=== PATIENT | female | born 1960 | race Caucasian/White ===

== ENCOUNTER 2017-10-24 13:08 | Inpatient (IN) | payer OTHER, SELFPAY ==
[2017-10-24 13:09] VITALS: BP 171/90; PULSE 96; RESP 16; TEMP 36.8; O2SAT 99; BMI 19.7
[2017-10-24 13:21] VITALS: BP 160/70; PULSE 92; RESP 14; O2SAT 99
--- NOTE | 2017-10-24 13:29 | RAD_ITS ---
STUDY: X-RAY - RIGHT HAND REASON FOR EXAM: Female, 57 years old. Pain with swelling and erythema. History of cat bite. TECHNIQUE: 3 view(s) of the hand. COMPARISON: None. FINDINGS: Normal radiocarpal articulation. Normal distal radioulnar joint. Normal visualized carpal bones. Normal carpal articulations Normal carpometacarpal articulation of the thumb. Normal second through fifth carpometacarpal joints. Normal metacarpi. Normal metacarpophalangeal joint of the thumb. Normal interphalangeal joint of the thumb. Normal proximal and distal phalanges of the thumb. Normal metacarpophalangeal joints of the second through fifth fingers. Normal proximal and distal interphalangeal joints of the second through fifth fingers. Normal phalanges of the second through fifth fingers. Soft tissue swelling. No radiopaque foreign body is seen. RAD/Hand Min 3 Views IMPRESSION: Soft tissue swelling. Electronically Signed: Anil Junior MD at 14:26 EDT Tel [phone], Service support ,
[2017-10-24 13:55] LABS: Absolute Lymphocyte Count 1.22 X10^3/ul (0.83-4.51); Absolute Neutrophil Count 4.5 X10^3/uL (2.0-7.7); Basophil# 0.02 X10^3/uL; Basophil% 0.3 % (0-1); Eosinophil# 0.08 X10^3/uL; Eosinophils% 1.3 % (0-5); Hemoglobin 12.4 g/dl (12.0-15.0); Lymphocyte # 1.22 X10^3/ul (4.0); Lymphocyte % 19.9 % (19-41); Mean Corp Hgb Conc 32.6 g/gl (32-36); Mean Corpuscular Hgb 29.6 pg (27.0-32.0); Mean Corpuscular Volume 90.7 fL (81-99); Mean Platelet Vol. 9.5 fl (6.2-12.0); Monocyte# 0.31 X10^3/uL; Neutrophil % 73.3 % (47-70); Platelet Count 215 K/mm3 (150-450); RBC Distribution Width CV 13.4 % (11.6-14.6); RBC Distribution Width SD 44.3 fl (35.1-43.9); Red Blood Count 4.19 M/mm3 (4.2-5.4); White Blood Count 6.1 K/mm3 (4.4-11.0)
[2017-10-24 13:56] LABS: POSITIVE COUNT NO; POSITIVE DIFFERENTIAL NO; POSITIVE MORPHOLOGY NO
[2017-10-24 14:08] LABS: Anion Gap 7 (5-15); BUN 13 mg/dL (7-18); BUN/Creat Ratio 10.1 RATIO (10-20); Calcium,Total 8.8 mg/dL (8.5-10.1); Chloride 106 mmol/L (98-107); Creatinine, Serum 1.29 mg/dL (0.55-1.02); EST Glomerular Filtration Rate 45 mL/min (>60); Est Glom Filt Rate - Afr Amer 54 mL/min (>60); Estimated Creatinine Clearance 36.31 ml/min; Glucose 131 mg/dL (74-106); Potassium 3.6 mmol/L (3.5-5.1); Sodium Level 141 mmol/L (136-145)
--- NOTE | 2017-10-24 14:08 | ED.VISSUMM ---
- ER Visit Summary Date of Service: 10/24/17 Chief Complaint: Cat bite right hand History of Present Illness: The patient is a 57 F who is right-hand dominant had a telemedicine evaluation yesterday and prescribed an ointment and clindamycin. She denies allergy to penicillin. She denies fever or chills. She does complain of increased redness and soft tissue swelling. She was bit by a pet cat. She was bit yesterday. There is no history rheumatic fever, heart murmur, SBE, or being immune suppressed. Physical Examination: Insert unremarkable. There is a puncture wound dorsal surface right hand in the vicinity of the third metacarpal. There is erythema, warmth slight induration with lymphangitis. Palpation the area is remarkable for slight purulent drainage. There is no epitrochlear or axillary lymphadenopathy. There is no pain with passive flexion-extension of the digits. Heart is regular without murmur, gallop or rub. S1 and S2 are normal. Lungs are clear to auscultation with good movement of air bilaterally. Test Results: Count 6.1 with 73% segs no bands. Electro panels marked for creatinine of 0.29 and glucose of 131. Emergency Department Course and Treatment: I was obtained to evaluate for retained foreign body. She received a dose of Unasyn. Blood work was obtained. Treatment Plan: States she has taken 3 doses of clindamycin. Disposition: Admit to med surge unit for failed outpatient treatment Bite right hand Impression: Infected right hand secondary to cat bite failed outpatient treatment This note was generated with [employer] dictation software. It may contain incorrect words, spelling, and punctuation that were not noted in review of the chart prior to signing ED Disposition - Plan for ED Patient: Chief Complaint: Bite Referrals: Maulik Black III, MD [Primary Care Provider] -
--- NOTE | 2017-10-24 14:32 | NURSING ---
DR AZUL CLOUD
[2017-10-24 14:39] VITALS: BMI 19.8
--- NOTE | 2017-10-24 14:42 | PCM.HP.STD ---
Problem List (1) Cellulitis of right hand Status: Acute (2) CKD (chronic kidney disease), stage III Status: Chronic History of Present Illness Date of Admission: 10/24/17 Chief Complaint: redness of right hand The patient is a 57 year old F who is bit on her right hand. Patient received some clindamycin and before starting the clindamycin, she noted that it started to get red. But even after taking the clindamycin he got more red and more swollen on the dorsum of her hand. Patient presented to the emergency room and did receive IV Unasyn. Patient denies any paresthesias in her hands and is able to move all of her digits without issues. Patient is Sitting for her sister who is out of state. Patient is aware of the patient's immunization status but does note that the patient's sister seems as though she would have done those appropriately. Patient is try to get a hold of her sisters currently in [place]. Current to the patient, this is strictly an indoor cat. The cat bite was rather deep on the dorsum of her hand and also associate with some scratches. [] Past Medical History Past Medical History (Chronic Problems): Chronic Problems CKD (chronic kidney disease), stage III (Chronic) Allergies Sulfa (Sulfonamide Antibiotics) Allergy (Verified 10/24/17 13:12) Hives Home Medications: Ambulatory Orders Medication Instructions Recorded Clindamycin HCl 300 mg PO TID 10/24/17 Mupirocin [Bactroban] 1 applicatio TOPICAL BID 10/24/17 Oxybutynin [Ditropan] 5 mg PO DAILY 10/24/17 Psychiatric History: No pertinent psych hx Smoking Status: Never smoker Tobacco Use: Non-smoker Alcohol: None Drugs: None - *Family History Paternal History Items: Heart Disease Review of Systems Constitutional: Denies: Chills, Fever, Weight Change Eyes: Denies: Blurred vision, Double vision HEENT: Denies: Head Aches, Sinus Congestion, Sinus Drainage Cardiovascular: Denies: Chest Pain, Palpitations Respiratory: Denies: Cough, Shortness of breath at rest, Sputum production Gastrointestinal: Denies: Abdominal Pain, Nausea, Vomiting Genitourinary: Denies: Dysuria Musculoskeletal: Reports: - - Right hand pain from the Bite. Denies: Joint Pain, Joint Tenderness Skin: Reports: - - Erythema on the dorsum of her right hand Neurological: Denies: Numbness, Tingling, Focal weakness Psychiatric: Denies: Anxiety, Depression, Homicidal Ideations, Suicidal Ideations Hematologic/ Lymphatic: Denies: Easy Bruising, Easy Bleeding, Hx of blood clot VTE Information - Inpt Only VTE Present on Admission: No VTE Pharm Prophylaxis ordered?: Yes Patient Problems: Active and Suspected Problems Cellulitis of right hand (Acute) - Physical Exam General: Alert, Cooperative, No apparent distress HEENT: Atraumatic, Normocephalic Neck: No Nodes, Thyroid Normal Size and Texture Lungs: Clear to auscultation, Normal air movement Cardiovascular: Regular rate, Regular Rhythm, Normal S1, Normal S2, No murmurs Abdomen: Bowel Sounds Present, Soft, Non Tender, Non-Distended, No Hepato-splenomegaly Extremities: No edema, No Calf Tenderness Skin: - - Erythema of the dorsum of the right hand extending more proximally. No fluctuance was noted. Discharge Musculoskeletal: No Tenderness to Palpation of Joints or Extremities, No Muscle Wasting Psych/Mental Status: Normal Affect, Appropriate Vital Signs Temp Pulse Resp BP Pulse Ox 36.8 C 92 14 160/70 H 99 10/24/17 13:09 10/24/17 13:21 10/24/17 13:21 10/24/17 13:21 10/24/17 13:21 Oxygen Delivery Method Room Air Weight: 48.988 kg Body Mass Index (BMI) 19.7 Laboratory Tests Past 24 Hrs 10/24/17 10/24/17 13:50 13:50 WBC 6.1 RBC 4.19 L Hgb 12.4 Hct 38.0 MCV 90.7 MCH 29.6 MCHC 32.6 RDW 13.4 RDW Differential 44.3 H Plt Count 215 MPV 9.5 Immature Gran % (Auto) 0.200 Neut % (Auto) 73.3 H Lymph % (Auto) 19.9 [place] % (Auto) 5.0 Eos % (Auto) 1.3 Baso % (Auto) 0.3 Absolute Neuts (auto) 4.5 Absolute Lymphs (auto) 1.22 Total Counted Not Reportable Sodium 141 Potassium 3.6 Chloride 106 Carbon Dioxide 28.0 Anion Gap 7 BUN 13 Creatinine 1.29 H Estim Creat Clear Calc 36.31 Est GFR (MDRD) Af Amer 54 L Est GFR (MDRD) Non-Af 45 L BUN/Creatinine Ratio 10.1 Glucose 131 H Calcium 8.8 Assessment/Plan Active and Suspected Problems Cellulitis of right hand (Acute) 1. Right hand cellulitis Secondary to the cat Bite. Only had 1 day of clindamycin and got worse. Patient will be changed over to Unasyn and be monitored. Dr. Gomes will be on consultation in case any surgery is necessary which I do not appreciate any surgery at this time. If patient does improve then I would suspect patient could be transitioned over to Augmentin. 2. Chronic kidney disease stage III Presumed his previous creatinine had been normal Patient will get IV fluids and will recheck a BMP in the morning 3. DVT prophylaxis with Lovenox Code Visit Inpatient E&M: 26218 Init Hosp L2
--- NOTE | 2017-10-24 14:50 | NURSING ---
MED SURG RT HAND CELLULITIS JOSE F
--- NOTE | 2017-10-24 14:51 | HP.PCM_ITS ---
Problem List (1) Cellulitis of right hand Status: Acute (2) CKD (chronic kidney disease), stage III Status: Chronic History of Present Illness Date of Admission: 10/24/17 Chief Complaint: redness of right hand The patient is a 57 year old F who is bit on her right hand. Patient received some clindamycin and before starting the clindamycin, she noted that it started to get red. But even after taking the clindamycin he got more red and more swollen on the dorsum of her hand. Patient presented to the emergency room and did receive IV Unasyn. Patient denies any paresthesias in her hands and is able to move all of her digits without issues. Patient is Sitting for her sister who is out of state. Patient is aware of the patient's immunization status but does note that the patient's sister seems as though she would have done those appropriately. Patient is try to get a hold of her sisters currently in [place]. Current to the patient, this is strictly an indoor cat. The cat bite was rather deep on the dorsum of her hand and also associate with some scratches. [] Past Medical History Past Medical History (Chronic Problems): Chronic Problems CKD (chronic kidney disease), stage III (Chronic) Allergies Sulfa (Sulfonamide Antibiotics) Allergy (Verified 10/24/17 13:12) Hives Home Medications: Ambulatory Orders Medication Instructions Recorded Clindamycin HCl 300 mg PO TID 10/24/17 Mupirocin [Bactroban] 1 applicatio TOPICAL BID 10/24/17 Oxybutynin [Ditropan] 5 mg PO DAILY 10/24/17 Psychiatric History: No pertinent psych hx Smoking Status: Never smoker Tobacco Use: Non-smoker Alcohol: None Drugs: None - *Family History Paternal History Items: Heart Disease Review of Systems Constitutional: Denies: Chills, Fever, Weight Change Eyes: Denies: Blurred vision, Double vision HEENT: Denies: Head Aches, Sinus Congestion, Sinus Drainage Cardiovascular: Denies: Chest Pain, Palpitations Respiratory: Denies: Cough, Shortness of breath at rest, Sputum production Gastrointestinal: Denies: Abdominal Pain, Nausea, Vomiting Genitourinary: Denies: Dysuria Musculoskeletal: Reports: - - Right hand pain from the Bite. Denies: Joint Pain , Joint Tenderness Skin: Reports: - - Erythema on the dorsum of her right hand Neurological: Denies: Numbness, Tingling, Focal weakness Psychiatric: Denies: Anxiety, Depression, Homicidal Ideations, Suicidal Ideations Hematologic/ Lymphatic: Denies: Easy Bruising, Easy Bleeding, Hx of blood clot VTE Information - Inpt Only VTE Present on Admission: No VTE Pharm Prophylaxis ordered?: Yes Patient Problems: Active and Suspected Problems Cellulitis of right hand (Acute) - Physical Exam General: Alert, Cooperative, No apparent distress HEENT: Atraumatic, Normocephalic Neck: No Nodes, Thyroid Normal Size and Texture Lungs: Clear to auscultation, Normal air movement Cardiovascular: Regular rate, Regular Rhythm, Normal S1, Normal S2, No murmurs Abdomen: Bowel Sounds Present, Soft, Non Tender, Non-Distended, No Hepato- splenomegaly Extremities: No edema, No Calf Tenderness Skin: - - Erythema of the dorsum of the right hand extending more proximally. No fluctuance was noted. Discharge Musculoskeletal: No Tenderness to Palpation of Joints or Extremities, No Muscle Wasting Psych/Mental Status: Normal Affect, Appropriate Vital Signs Temp Pulse Resp BP Pulse Ox 36.8 C 92 14 160/70 H 99 10/24/17 13:09 10/24/17 13:21 10/24/17 13:21 10/24/17 13:21 10/24/17 13:21 Oxygen Delivery Method Room Air Weight: 48.988 kg Body Mass Index (BMI) 19.7 Laboratory Tests Past 24 Hrs 10/24/17 10/24/17 13:50 13:50 WBC 6.1 RBC 4.19 L Hgb 12.4 Hct 38.0 MCV 90.7 MCH 29.6 MCHC 32.6 RDW 13.4 RDW Differential 44.3 H Plt Count 215 MPV 9.5 Immature Gran % (Auto) 0.200 Neut % (Auto) 73.3 H Lymph % (Auto) 19.9 [place] % (Auto) 5.0 Eos % (Auto) 1.3 Baso % (Auto) 0.3 Absolute Neuts (auto) 4.5 Absolute Lymphs (auto) 1.22 Total Counted Not Reportable Sodium 141 Potassium 3.6 Chloride 106 Carbon Dioxide 28.0 Anion Gap 7 BUN 13 Creatinine 1.29 H Estim Creat Clear Calc 36.31 Est GFR (MDRD) Af Amer 54 L Est GFR (MDRD) Non-Af 45 L BUN/Creatinine Ratio 10.1 Glucose 131 H Calcium 8.8 Assessment/Plan Active and Suspected Problems Cellulitis of right hand (Acute) 1. Right hand cellulitis * Secondary to the cat Bite. * Only had 1 day of clindamycin and got worse. * Patient will be changed over to Unasyn and be monitored. * Dr. Gomes will be on consultation in case any surgery is necessary which I do not appreciate any surgery at this time. * If patient does improve then I would suspect patient could be transitioned over to Augmentin. 2. Chronic kidney disease stage III * Presumed his previous creatinine had been normal * Patient will get IV fluids and will recheck a BMP in the morning 3. DVT prophylaxis with Lovenox Code Visit Inpatient E&M: 86608 Init Hosp L2
[2017-10-24 14:56] VITALS: BP 130/70; PULSE 98; RESP 14; O2SAT 99
[2017-10-24 15:34] VITALS: BMI 21.9
[2017-10-24 15:35] VITALS: BP 161/91; PULSE 85; RESP 18; TEMP 36.9; O2SAT 99
[2017-10-24] MEDS: 0.9% Normal Saline 1,000 ML 150 ML IV (16:06)
[2017-10-24 17:41] LABS: M R Staph aureus DNA By PCR Negative (Negative); Probe Check PASS; Specimen Processing Control PASS; Staph aureus DNA By PCR NEGATIVE (Negative)
--- NOTE | 2017-10-24 17:43 | CON.PCM_ITS ---
Reason for Consult Date of Consultation: 10/24/17 Reason for Consultation: Cat bite infection dorsum right hand by index finger. REFERRING PHYSICIAN: Dr. Mcintosh. AIRCRAFT BODY REPAIRER: Dr. Gomes. History of Present Illness: The patient is a 57 year old F who sustained a cat bite to the dorsum right hand by index finger. She states it is her sister's cat that she has been around for a while. She was started on Cleocin. The redness and swelling and pain worsened, and she was admitted. She denies any fever. She was started on Unasyn IV. Her WBC in ED was 6.1. Xray showed no foreign body and no fracture. Patient denies any paresthesias in her hands and is able to move all of her digits without issues. I was asked to evaluate this patient for surgical options for treatment. She is right hand dominant. Past Medical History Past Medical History (Chronic Problems): Chronic Problems CKD (chronic kidney disease), stage III (Chronic) Allergies Sulfa (Sulfonamide Antibiotics) Allergy (Verified 10/24/17 13:12) Hives Current Medications Acetaminophen (Tylenol) 650 mg PO Q6H PRN Enoxaparin Sodium (Lovenox) 40 mg SC DAILY@1000 DAYSI Ampicillin Sodium/Sulbactam (Sodium 3 gm/ Sodium Chloride) 112 mls @ 150 mls/ hr IV Q6 DAYSI Magnesium Hydroxide (Milk Of Magnesia) 30 ml PO DAILY PRN Ondansetron HCl (Zofran) 4 mg IV Q8H PRN Oxycodone HCl (Oxyir) 5 - 10 mg PO Q4H PRN Tolterodine Tartrate (Detrol La) 2 mg PO DAILY [facility] Home Medications: Ambulatory Orders Medication Instructions Recorded Mupirocin [Bactroban] 1 applicatio TOPICAL BID 10/24/17 Oxybutynin [Ditropan] 5 mg PO DAILY 10/24/17 Acetaminophen [Tylenol Tablet] 650 mg PO Q6H PRN PRN tablet 10/25/17 Amoxicillin/Potassium Clav 1 ea PO BID #14 tab 10/25/17 [Augmentin 875-125 Tablet] Lactobacillus Casei/Folic Acid 1 ea PO BID #20 cap 10/25/17 [Restora Rx Capsule] Surgical History: no surgical history Psychiatric History: No pertinent psych hx Smoking Status: Never smoker Tobacco Use: Non-smoker Alcohol: None Drugs: None - *Family History Paternal History Items: Heart Disease Review of Systems Comment: Constitutional: Denies: Chills, Fever, Weight Change. Eyes: Denies: Blurred vision, Double vision. HEENT: Denies: Head Aches, Sinus Congestion, Sinus Drainage. Cardiovascular: Denies: Chest Pain, Palpitations. Respiratory : Denies: Cough, Shortness of breath at rest, Sputum production. Gastrointestinal: Denies: Abdominal Pain, Nausea, Vomiting. Genitourinary: Denies: Dysuria. Musculoskeletal: Reports: - - Right hand pain from the Bite. Denies: Joint Pain, Joint Tenderness. Skin: Reports: - - Erythema on the dorsum of her right hand. Neurological: Denies: Numbness, Tingling, Focal weakness. Psychiatric: Denies: Anxiety, Depression, Homicidal Ideations, Suicidal Ideations. Hematologic/ Lymphatic: Denies: Easy Bruising, Easy Bleeding, Hx of blood clot Patient Problems: Active and Suspected Problems Cat bite (Acute) - Physical Exam General: Alert, Cooperative. HEENT: PERRL. EOMI. Throat is clear. Neck: No cervical adenopathy. Supple, nontender. Lungs: Clear to auscultation. Cardiovascular: Regular rate, Regular Rhythm. Abdomen: Soft, Non-Distended. Extremities: No edema, No Calf Tenderness Skin: - - Erythema of the dorsum of the right hand has improved. No fluctuance was noted. Small dry scab on dorsum by index finger where the cat bite located. No drainage. Musculoskeletal: No Tenderness to Palpation of Joints or Extremities. Good range of motion right hand. No sensory deficits. Radial pulses intact. No axillary adenopathy. Minimal swelling noted. She is right hand dominant. Psych/Mental Status: Normal Affect, Appropriate Vital Signs Temp Pulse Resp BP Pulse Ox 98.5 F 85 18 161/91 H 99 10/24/17 15:35 10/24/17 15:35 10/24/17 15:35 10/24/17 15:35 10/24/17 15:35 Oxygen Delivery Method Room Air Weight: 112 lb 9.6 oz Body Mass Index (BMI) 21.9 Diagnostic Data Hand X-Ray 10/24/17 13:29 IMPRESSION: Soft tissue swelling. Electronically Signed: Anil Junior MD at 14:26 EDT Tel [phone], Service support , Assessment/Plan Active and Suspected Problems Cat bite (Acute) 1. Cat bite infection dorsum right hand by index finger. 2. Cellulitis dorsum right hand by index finger. Continue Unasyn. If improvement continues which I anticipate, can be switched to Augmentin in the morning and if no problems occur, can be discharged on Augmentin. If redness worsens, will need a CT scan followed by operative intervention with incision and drainage and excisional debridement. Continue range of motion exercises to minimize stiffness. Keep right hand elevated to minimize swelling. No need for surgical intervention at this time. When discharged, followup office one week. She is instructed to call office sooner if drainage recurs. Patient was informed of the risks and complications of the procedure including alternatives to surgery. These were discussed with her personally. She voices understanding and wishes to proceed with the current plan of continued antibiotics and range of motion exercises. She understands that operative intervention may be necessary if there is worsening of the cat bite. Code Visit Inpatient E&M: 72971 Init Hosp L2 - ICD-10 - W55.01xA, L03.113
[2017-10-24 21:16] VITALS: BP 139/73; PULSE 73; RESP 18; TEMP 36.8; O2SAT 98
[2017-10-25] MEDS: 0.9% NaCl Peripheral Flush Adult/Peds IV (05:12)
[2017-10-25 05:14] VITALS: BP 124/83; PULSE 74; RESP 18; TEMP 36.9; O2SAT 100
[2017-10-25 06:27] LABS: Anion Gap 9 (5-15); BUN 9 mg/dL (7-18); BUN/Creat Ratio 11.5 RATIO (10-20); Calcium,Total 8.2 mg/dL (8.5-10.1); Chloride 111 mmol/L (98-107); Creatinine, Serum 0.78 mg/dL (0.55-1.02); EST Glomerular Filtration Rate 80 mL/min (>60); Est Glom Filt Rate - Afr Amer 97 mL/min (>60); Estimated Creatinine Clearance 55.78 ml/min; Glucose 87 mg/dL (74-106); Potassium 3.6 mmol/L (3.5-5.1); Sodium Level 146 mmol/L (136-145)
--- NOTE | 2017-10-25 06:53 | PCM.PROGNOTE ---
Subjective: Unasyn day #2 Patient is a 57-year-old female with a history of chronic renal failure stage III who presented to the emergency department at [facility] on 10/24/2017 complaining of redness on her right hand following a cat bite. She had a telemedicine evaluation and was prescribed Clindamycin on 10/23. The redness continued to increase and so she came to the ER. Vital signs at presentation to the emergency room were temperature 98.3, pulse rate 96, blood pressure 171/90, respiratory rate 16 and she was 99% saturated on room air. Blood cell count was 6.1 with 73% neutrophils. Creatinine was increased to 1.29 and the BUN was 13. Random blood sugar was 131. PCR on the wound drainage was negative for MRSA and negative for staph aureus protein. Pain x-ray of the hand showed soft tissue swelling with no evidence of foreign body. She was given Unasyn in the emergency room and admitted to the hospital with a consult for Dr. Gomes. No wound culture was sent. All events of the past 24 hours have been reviewed. Afebrile since admission. Blood pressure today is 124/83 with a pulse rate of 74. Creatinine today is 0.78, down from 1.29 at admission. States her pain is adequately controlled. Denies nausea or vomiting. Slept well last night. No diarrhea. Objective: Physical Exam General: Alert, Cooperative, No apparent distress, pleasant and upbeat HEENT: Atraumatic, Normocephalic Neck: No Nodes, trachea is midline, good carotid pulse BL Lungs: Clear to auscultation, Normal air movement Cardiovascular: Regular rate, Regular Rhythm, Normal S1, Normal S2, no ectopy Abdomen: Bowel Sounds Present, Soft, Non Tender, Non-Distended Extremities: No edema, No Calf Tenderness Skin: - - Erythema of the dorsum of the right hand extending more proximally. No fluctuance was noted. redness has receded within the marked border. there are small puncture wounds on the dorsum of the had which are scabbed over and no discharge could be expressed. Minimal swelling Musculoskeletal: No Tenderness to Palpation of Joints or Extremities, No Muscle Wasting Psych/Mental Status: Normal Affect, Appropriate - Physical Exam Vital Signs Temp Pulse Resp BP Pulse Ox 98.4 F 74 18 124/83 H 100 10/25/17 05:14 10/25/17 05:14 10/25/17 05:14 10/25/17 05:14 10/25/17 05:14 Oxygen Delivery Method Room Air Weight: 112 lb 9.6 oz Body Mass Index (BMI) 21.9 Intake and Output for Last 24 Hours 10/23/17 10/24/17 10/25/17 23:59 23:59 23:59 Intake Total 1317 / 1317 311 / 311 Balance 1317 / 1317 311 / 311 Laboratory Tests Past 24 Hrs 10/25/17 05:32 Sodium 146 H Potassium 3.6 Chloride 111 H Carbon Dioxide 26.0 Anion Gap 9 BUN 9 Creatinine 0.78 Estim Creat Clear Calc 55.78 Est GFR (MDRD) Af Amer 97 Est GFR (MDRD) Non-Af 80 BUN/Creatinine Ratio 11.5 Glucose 87 Calcium 8.2 L Medical Necessity - Tobacco Use Smoking Status: Never smoker Tobacco Use: Non-smoker Assessment/Plan Impressions 1. cat bite cellulitis - most likely culprit is Pasturella Multocida which is not covered by Clindamycin stable for [place] home. Code Visit Inpatient E&M: 91619 Disch Hosp
--- NOTE | 2017-10-25 07:03 | PN_ITS ---
Subjective: Unasyn day #2 Patient is a 57-year-old female with a history of chronic renal failure stage III who presented to the emergency department at [facility] on complaining of redness on her right hand following a cat bite. She had a telemedicine evaluation and was prescribed Clindamycin on 10/23. The redness continued to increase and so she came to the ER. Vital signs at presentation to the emergency room were temperature 98.3, pulse rate 96, blood pressure 171/90, respiratory rate 16 and she was 99% saturated on room air. Blood cell count was 6.1 with 73% neutrophils. Creatinine was increased to 1.29 and the BUN was 13. Random blood sugar was 131. PCR on the wound drainage was negative for MRSA and negative for staph aureus protein. Pain x- ray of the hand showed soft tissue swelling with no evidence of foreign body. She was given Unasyn in the emergency room and admitted to the hospital with a consult for Dr. Gomes. No wound culture was sent. All events of the past 24 hours have been reviewed. Afebrile since admission. Blood pressure today is 124/83 with a pulse rate of 74. Creatinine today is 0.78, down from 1.29 at admission. States her pain is adequately controlled. Denies nausea or vomiting. Slept well last night. No diarrhea. Objective: Physical Exam General: Alert, Cooperative, No apparent distress, pleasant and upbeat HEENT: Atraumatic, Normocephalic Neck: No Nodes, trachea is midline, good carotid pulse BL Lungs: Clear to auscultation, Normal air movement Cardiovascular: Regular rate, Regular Rhythm, Normal S1, Normal S2, no ectopy Abdomen: Bowel Sounds Present, Soft, Non Tender, Non-Distended Extremities: No edema, No Calf Tenderness Skin: - - Erythema of the dorsum of the right hand extending more proximally. No fluctuance was noted. redness has receded within the marked border. there are small puncture wounds on the dorsum of the had which are scabbed over and no discharge could be expressed. Minimal swelling Musculoskeletal: No Tenderness to Palpation of Joints or Extremities, No Muscle Wasting Psych/Mental Status: Normal Affect, Appropriate - Physical Exam Vital Signs Temp Pulse Resp BP Pulse Ox 98.4 F 74 18 124/83 H 100 10/25/17 05:14 10/25/17 05:14 10/25/17 05:14 10/25/17 05:14 10/25/17 05:14 Oxygen Delivery Method Room Air Weight: 112 lb 9.6 oz Body Mass Index (BMI) 21.9 Intake and Output for Last 24 Hours 10/23/17 10/24/17 10/25/17 23:59 23:59 23:59 Intake Total 1317 / 1317 311 / 311 Balance 1317 / 1317 311 / 311 Laboratory Tests Past 24 Hrs 10/25/17 05:32 Sodium 146 H Potassium 3.6 Chloride 111 H Carbon Dioxide 26.0 Anion Gap 9 BUN 9 Creatinine 0.78 Estim Creat Clear Calc 55.78 Est GFR (MDRD) Af Amer 97 Est GFR (MDRD) Non-Af 80 BUN/Creatinine Ratio 11.5 Glucose 87 Calcium 8.2 L Medical Necessity - Tobacco Use Smoking Status: Never smoker Tobacco Use: Non-smoker Assessment/Plan Impressions 1. cat bite cellulitis - most likely culprit is Pasturella Multocida which is not covered by Clindamycin stable for HI home. Code Visit Inpatient E&M: 65343 Disch Hosp
[2017-10-25 08:25] VITALS: BP 141/86; PULSE 71; RESP 16; TEMP 36.8; O2SAT 99
[2017-10-25] MEDS: Tolterodine Tartrate 2 MG CAP.SA PO (08:26)
[2017-10-25] MEDS: Enoxaparin 40 MG/0.4 ML Syringe SC (08:27)
--- NOTE | 2017-10-25 10:21 | PCM.DC ---
- Discharge Diagnoses Current Active Problems: Current Active and Chronic Problems Cellulitis of right hand (Acute) CKD (chronic kidney disease), stage III (Chronic) You will use the following diet at home:: No restrictions Your food should be the consistency of: Regular Your liquids should be the consistency of: Regular/Thin Discharge Activity: Return to Normal Activity Return to work on:: 10/30/17 May resume sexual activity in: No Restrictions Weight Bearing Status: Full weight bearing Keep extremity elevated above heart level: Right Arm Call your doctor if you observe: Fever of 101 or Higher, - - diarrhea, nausea, rash, increasing redness of the right hand, pus coming from the puncture site or a boil at the puncture site Additional Instructions: 1. The hand will swell when it is dependent due to increased blood flow due to infection......your body dilates the blood vessels trying to get white blood cells to the wound to fight the infection. It will also look more red when dependent....this is normal. Keep the Right arm in the sling for a few days when up walking around. You do not need to wear the sling if you are sitting in a chair and you can elevate the arm on the chair arm or if you are in bed. Augmentin can cause some GI upset so take it with food, not on an empty stomach. I prescribed a probiotic which should help with loose stool seen with Augmentin. Pending Tests on Discharge: none Allergies/Adverse Reactions: Allergies Sulfa (Sulfonamide Antibiotics) Allergy (Verified 10/24/17 13:12) Hives Medications to take at Discharge Mupirocin [Bactroban] 1 applicatio TOPICAL BID 10/24/17 Oxybutynin [Ditropan] 5 mg PO DAILY 10/24/17 Acetaminophen [Tylenol Tablet] 650 mg PO Q6H PRN PRN tablet 10/25/17 Amoxicillin/Potassium Clav [Augmentin 875-125 Tablet] 1 ea PO BID #14 tab 10/25/17 Lactobacillus Casei/Folic Acid [Restora Rx Capsule] 1 ea PO BID #20 cap 10/25/17 The following prescriptions were given: Amoxicillin/Potassium Clav [Augmentin 875-125 Tablet] 1 ea PO BID #14 tab Lactobacillus Casei/Folic Acid [Restora Rx Capsule] 1 ea PO BID #20 cap Primary Care Physician: Maulik Black III, MD [Primary Care Provider] - Please follow up with your Primary Care Physician in: 5-7 days Proposed Discharge Date: 10/25/17
--- NOTE | 2017-10-25 10:34 | PCM.DC.SUM ---
Discharge Date and Diagnosis Date of Admission: 10/24/17 Date of Discharge: 10/25/17 - Primary Discharge Diagnosis Active and Suspected Problems Cat bite (Acute) Cellulitis of right hand (Acute) Acute kidney injury - Secondary Discharge Diagnosis Chronic Problems Chronic renal failure stage III-ruled out Hospital Course and Treatment Imaging Results: Clinical Impression(s) from Imaging Studies Hand X-Ray 10/24/17 13:29 IMPRESSION: Soft tissue swelling. Electronically Signed: Anil Junior MD at 14:26 EDT Tel [phone], Service support , Laboratory Tests 10/24/17 10/24/17 10/24/17 13:50 13:50 14:15 WBC 6.1 RBC 4.19 L Hgb 12.4 Hct 38.0 MCV 90.7 MCH 29.6 MCHC 32.6 RDW 13.4 RDW Differential 44.3 H Plt Count 215 MPV 9.5 Immature Gran % (Auto) 0.200 Neut % (Auto) 73.3 H Lymph % (Auto) 19.9 [place] % (Auto) 5.0 Eos % (Auto) 1.3 Baso % (Auto) 0.3 Absolute Neuts (auto) 4.5 Absolute Lymphs (auto) 1.22 Total Counted Not Reportable Sodium 141 Potassium 3.6 Chloride 106 Carbon Dioxide 28.0 Anion Gap 7 BUN 13 Creatinine 1.29 H Estim Creat Clear Calc 36.31 Est GFR (MDRD) Af Amer 54 L Est GFR (MDRD) Non-Af 45 L BUN/Creatinine Ratio 10.1 Glucose 131 H Calcium 8.8 S.aureus Protein A PCR NEGATIVE MRSA (PCR) Negative 10/25/17 05:32 WBC RBC Hgb Hct MCV MCH MCHC RDW RDW Differential Plt Count MPV Immature Gran % (Auto) Neut % (Auto) Lymph % (Auto) [place] % (Auto) Eos % (Auto) Baso % (Auto) Absolute Neuts (auto) Absolute Lymphs (auto) Total Counted Sodium 146 H Potassium 3.6 Chloride 111 H Carbon Dioxide 26.0 Anion Gap 9 BUN 9 Creatinine 0.78 Estim Creat Clear Calc 55.78 Est GFR (MDRD) Af Amer 97 Est GFR (MDRD) Non-Af 80 BUN/Creatinine Ratio 11.5 Glucose 87 Calcium 8.2 L S.aureus Protein A PCR MRSA (PCR) Dr. Vish Gomes Operations: None Procedures: None Summary of Care Provided: Patient is a 57-year-old female with no significant chronic medical problems who presented to the emergency department at [facility] on 10/24/2017 complaining of redness of her right hand following a cat bite. She had a telemedicine evaluation and was prescribed Clindamycin on 10/23. The redness continued to increase and so she came to the ER. Vital signs at presentation to the emergency room were temperature 98.3, pulse rate 96, blood pressure 171/90, respiratory rate 16 and she was 99% saturated on room air. White Blood cell count was 6.1 with 73% neutrophils. Creatinine was increased to 1.29 and the BUN was 13. She denied any hx of Chronic kidney disease. Random blood sugar was 131. PCR on the wound drainage was negative for MRSA and negative for staph aureus protein. Plain x-ray of the hand showed soft tissue swelling with no evidence of foreign body. She was given Unasyn in the emergency room and admitted to the hospital with a diagnosis of LOUIE and cat bite cellulitis of the right hand. Consult was placed with Dr. Gomes. Unasyn was continued. The RUE was elevated. She was afebrile for the duration of her hospital stay. Dr. Gomes recommended continuing Unasyn and if the symptoms improved there would be no need for surgical intervention. One day following admission the redness had receded to well within the marked border. Swelling was minimal and the puncture wounds on the dorsum of the right hand were scabbed over with no expressible discharge. With hydration the creatinine decreased to 0.78 from 1.29 at admission. She was discharged home on Augmentin 875 mg twice daily for 7 more days. She was also given a prescription for probiotic. She will discontinue clindamycin. She was instructed to follow-up with Dr. Maulik Black iii in 5-7 days and to return to the emergency room should redness, swelling or pain increase or should she develop a fever. This note was generated with ROOOMERSation software. It may contain incorrect words, spelling, and punctuation that were not noted in checking the note before signing. Discharge Activity: Return to Normal Activity Return to work on:: 10/30/17 May resume sexual activity in: No Restrictions Weight Bearing Status: Full weight bearing Keep extremity elevated above heart level: Right Arm Call your doctor if you observe: Fever of 101 or Higher, - - diarrhea, nausea, rash, increasing redness of the right hand, pus coming from the puncture site or a boil at the puncture site Home Medications: Medications to take at Discharge Mupirocin [Bactroban] 1 applicatio TOPICAL BID 10/24/17 Oxybutynin [Ditropan] 5 mg PO DAILY 10/24/17 Acetaminophen [Tylenol Tablet] 650 mg PO Q6H PRN PRN tablet 10/25/17 Amoxicillin/Potassium Clav [Augmentin 875-125 Tablet] 1 ea PO BID #14 tab 10/25/17 Lactobacillus Casei/Folic Acid [Restora Rx Capsule] 1 ea PO BID #20 cap 10/25/17 Following Prescrptions Were Given to Patient: Amoxicillin/Potassium Clav [Augmentin 875-125 Tablet] 1 ea PO BID #14 tab Lactobacillus Casei/Folic Acid [Restora Rx Capsule] 1 ea PO BID #20 cap Primary Care Physician: Maulik Black III, MD [Primary Care Provider] - Please follow up with your Primary Care Physician in: 5-7 days Medical Necessity - Tobacco Use Smoking Status: Never smoker Tobacco Use: Non-smoker Meaningful Use Info Meaningful Use Diagnoses (Choose all that apply): None applicable Code Visit Inpatient E&M: 75446 Disch Hosp
--- NOTE | 2017-10-25 11:07 | CASEMGMT ---
RN CM assessment complete, see attached link. DC Plan: Home -No dc needs identified. Pt will return home with po antibiotics. Karl MCMAHON RN ACM
== END 2017-10-25 11:22 | disposition home or self-care (01) | DRG 603 ==
LOC: ED 14:22 → MS2 15:00
PROVIDERS: Emergency Provider Emergency Medicine; Family Provider Family Medicine; PCP Family Medicine; Visit Provider Internal Medicine
DX: L03.113 Cellulitis of right upper limb (principal); S61.451A Open bite of right hand, initial encounter; W55.01XA Bitten by cat, initial encounter
CPT/HCPCS: 36415; 73130; 80048; 85025; 87640; 97802; 99283; J7030; A4216; J0295

== ENCOUNTER → 2017-12-21 16:30 | Outpatient (CLI) | payer OTHER, SELFPAY ==
--- NOTE | 2017-12-21 16:34 | BI_ITS ---
MAMMOGRAPHY - BILATERAL SCREENING REASON FOR EXAM: Female, 57 years old. Routine annual screening examination. PERTINENT HISTORY: Non-contributory. TECHNIQUE: Digital bilateral breast sharron (3D mammographic acquisition) in the CC and MLO projections. 2-D mediolateral oblique (MLO) and craniocaudad (CC) views of both breasts were obtained. CAD: Full Field Digital Mammography with Computer Added Detection was performed. COMPARISON: Comparison is made with prior axial examination dated September 22, 2016. FINDINGS: Breast Composition: The breasts are extremely dense, which lowers the sensitivity of mammography. There are no dominant masses or suspicious calcifications. No other significant abnormalities are identified. There has been no significant change since the prior study. BI/SCREENING MAMM (CAD), BILAT IMPRESSION: Stable bilateral screening mammogram. Yearly follow-up mammogram recommended. (A) ASSESSMENT CATEGORY: BIRADS Category 1: Negative. A letter regarding these results will be sent to the patient by the facility within 30 days. Approximately 10% of breast cancers are not detected by mammography. A normal mammogram should not delay biopsy of a clinically suspicious abnormality. [id number] Electronically Signed: Anil Junior MD at 8:18 EDT Tel [phone], Service support ,
== END ==
PROVIDERS: Family Provider Family Medicine; PCP Family Medicine; Visit Provider Family Medicine
DX: Z12.31 Encounter for screening mammogram for malignant neoplasm of breast (principal)
CPT/HCPCS: 77063; 77067

== ENCOUNTER → 2019-08-27 | Outpatient (CLI) | payer OTHER, SELFPAY ==
--- NOTE | 2019-08-27 07:39 | BI_ITS ---
MAMMOGRAPHY - BILATERAL SCREENING REASON FOR EXAM: Female, 58 years old. Routine annual screening examination. PERTINENT HISTORY: Non-contributory. TECHNIQUE: Digital bilateral breast john (3D mammographic acquisition) in the CC and MLO projections. 2-D mediolateral oblique (MLO) and craniocaudad (CC) views of both breasts were obtained. CAD: Full Field Digital Mammography with Computer Added Detection was performed. COMPARISON: Comparison is made with prior examination dated December 21, 2017. FINDINGS: Breast Composition: The breasts are extremely dense, which lowers the sensitivity of mammography. There are no dominant masses or suspicious calcifications. No other significant abnormalities are identified. There has been no significant change since the prior study. BI/SCREEN MAMM (CAD) W/JOHN BILAT IMPRESSION: Stable bilateral screening mammogram. Yearly follow-up mammogram recommended. (A) ASSESSMENT CATEGORY: BIRADS Category 1: Negative. A letter regarding these results will be sent to the patient by the facility within 30 days. Approximately 10% of breast cancers are not detected by mammography. A normal mammogram should not delay biopsy of a clinically suspicious abnormality. [id number] Electronically Signed: Anil Junior, at 9:08 EDT , Service support ,
== END | disposition home or self-care (01) ==
LOC: OPBI 07:37
PROVIDERS: PCP Family Medicine; Referring Provider Family Medicine; Visit Provider Family Medicine
DX: Z12.31 Encounter for screening mammogram for malignant neoplasm of breast (principal)
CPT/HCPCS: 77063; 77067

== ENCOUNTER → 2019-11-28 | Outpatient (CLI) | payer OTHER, SELFPAY ==
[2019-11-13 10:08] VITALS: BMI 20.8
--- NOTE | 2019-11-28 13:49 | ECHOD_ITS ---
Reason For Study: Syncope Procedure This was a 2D Doppler, Color Flow transthoracic echocardiogram. Exam performed in department. Left Ventricle Normal LV size. The estimated ejection fraction is 65 %. Left ventricular systolic function is normal. Normal diastology for age. No regional wall motion abnormalities noted. Right Ventricle Normal RV size. Normal systolic function. Atria Normal left atrium. Normal right atrium. Mitral Valve Normal mitral valve. Tricuspid Valve Normal tricuspid valve. Mild tricuspid valve insufficiency. Aortic Valve Normal aortic valve. Trisinus/trileaflet aortic valve. Pulmonic Valve Normal pulmonic valve. Great Vessels Normal aortic root. The pulmonary artery is normal size. Inferior vena cava collapse with sniff. Pericardium/Pleural No pericardial effusion. MMode/2D Measurements & Calculations LVIDd: 3.6 cm IVSd: 0.75 cm Ao root diam: 3.2 cm LVIDs: 2.2 cm LVPWd: 0.73 cm RVDd: 3.0 cm FS: 39.0 % LAV(MOD-bp): 20.8 ml LA A4 area: 11.9 cm2 LA dimension(2D): 2.1 cm LAV(MOD-bp) Indexed: 14.0 ml/m2 LAV(MOD-sp2): 16.2 ml LAV(MOD-sp4): 25.3 ml RA A4 area: 12.5 cm2 Doppler Measurements & Calculations MV E max carlos: 85.0 cm/sec Lat Peak E' Carlos: 12.1 cm/sec Med Peak E' Carlos: 12.4 cm/sec MV A max carlos: 62.7 cm/sec E/E' lat: 7.0 E/E' med: 6.8 MV E/A: 1.4 Ao V2 max: 116.9 cm/sec LV V1 max: 85.2 cm/sec PA V2 max: 71.1 cm/sec Ao max P.5 mmHg LV V1 max P.9 mmHg TR max carlos: 209.6 cm/sec TR max P.6 mmHg Interpretation Summary Normal LV size. The estimated ejection fraction is 65 %. Left ventricular systolic function is normal. Mild tricuspid valve insufficiency. Ordering Physician: Cortes Mcgarry Referring Physician: SHERITA Black M.D. Performed By: Tracy Gomez RDCS
== END | disposition home or self-care (01) ==
PROVIDERS: PCP Family Medicine; Referring Provider Internal Medicine Cardiovascular Disease; Visit Provider Internal Medicine Cardiovascular Disease
DX: R42 Dizziness and giddiness (principal); R55 Syncope and collapse; I10 Essential (primary) hypertension
CPT/HCPCS: 93306

== ENCOUNTER 2020-08-27 07:00 | Outpatient (RCR) | payer OTHER, SELFPAY ==
[2019-11-13 10:08] VITALS: BMI 20.8
[2020-08-27] MEDS: COVID-19 VACC, MRNA(PFIZER)/PF 30 MCG/0.3 ML SYRINGE IM (15:55)
[2020-09-17] MEDS: COVID-19 VACC, MRNA(PFIZER)/PF 30 MCG/0.3 ML SYRINGE IM (15:27)
== END 2020-11-24 23:59 ==
LOC: IMMUN 07:00
PROVIDERS: PCP Family Medicine; Referring Provider Family Medicine; Visit Provider Family Medicine
DX: Z23 Encounter for immunization (principal)
CPT/HCPCS: 0001A; 0002A; 91300

== ENCOUNTER → 2020-10-21 08:19 | Outpatient (CLI) | payer OTHER, SELFPAY ==
[2019-11-13 10:08] VITALS: BMI 20.8
--- NOTE | 2020-10-21 08:21 | BI_ITS ---
MAMMOGRAPHY - BILATERAL SCREENING REASON FOR EXAM: Female, 60 years old. Routine annual screening examination. PERTINENT HISTORY: Non-contributory. TECHNIQUE: Digital bilateral breast john (3D mammographic acquisition) in the CC and MLO projections. 2-D mediolateral oblique (MLO) and craniocaudad (CC) views of both breasts were obtained. CAD: Full Field Digital Mammography with Computer Added Detection was performed. COMPARISON: Comparison is made with prior examination dated 08/27/2019 and 12/21/2017. FINDINGS: Breast Composition: The breasts are extremely dense, which lowers the sensitivity of mammography. There are no dominant masses or suspicious calcifications. No other significant abnormalities are identified. There has been no significant change since the prior study. BI/SCRN MAMM (CAD)W/JOHN BILAT IMPRESSION: Stable bilateral screening mammogram. Yearly follow-up mammogram recommended. (A) ASSESSMENT CATEGORY: BIRADS Category 1: Negative. A letter regarding these results will be sent to the patient by the facility within 30 days. Approximately 10% of breast cancers are not detected by mammography. A normal mammogram should not delay biopsy of a clinically suspicious abnormality. [id number] Electronically Signed: Anil Junior MD at 9:19 EDT , Service support ,
--- NOTE | 2020-10-21 08:40 | BD_ITS ---
STUDY: DUAL ENERGY X-RAY ABSORPTIOMETRY / DXA REASON FOR EXAM: Female, 60 years old. M810. Patient is postmenopausal. TECHNIQUE: Bone Mineral Density (BMD) measurements of lumbar spine and bilateral hips were obtained. COMPARISON: None. FINDINGS: Lumbar Spine (L1-L4): g/cm2 (0.919) / T-score (-2.3) / Z-score (-1.0) Findings are suggestive of osteopenia with a high fracture risk. Left Femur Total: g/cm2 (0.661) / T-score (-2.8) / Z-score (-1.7) Left Femoral Neck: g/cm2 (0.641) / T-score (-2.9) / Z-score (-1.5) Right Femur Total: g/cm2 (0.727) / T-score (-2.2) / Z-score (-1.2) Right Femoral Neck: g/cm2 (0.698) / T-score (-2.4) / Z-score (-1.1) BD/Dexa Bone Density Study IMPRESSION: The patient is considered osteoporotic as outlined below according to World [employer]anc[employer] Organization (WHO) criteria with a high fracture risk. Reference Information: The T-score is the number of standard deviations above or below the standard which is normal for young adults at their peak bone mineral density. The World Health Organization (WHO) interprets the T-scores as follows: Above -1 Normal bone density Between -1 and -2.5 Osteopenia Equal to / or below -2.5 Osteoporosis As a practical clinical guideline, osteopenia may be graded as follows: Mild -1 through -1.5 Moderate -1.6 through -2.0 Severe -2.1 through -2.4 The Z-score is the number of standard deviations above or below age-matched controls. A Z-score of less than -1.5 would be considered abnormal. References: 1. NIH Osteoporosis and Related Bone Diseases www osteo.org 2. International Society for Clinical Densitometry www iscd.org 3. National Osteoporosis Foundation www nof.org Electronically Signed: Anil Junior MD at 12:24 EDT , Service support ,
== END ==
PROVIDERS: PCP Family Medicine; Referring Provider Family Medicine; Visit Provider Family Medicine
DX: Z12.31 Encounter for screening mammogram for malignant neoplasm of breast (principal); Z13.820 Encounter for screening for osteoporosis
CPT/HCPCS: 77063; 77067; 77080

== ENCOUNTER → 2022-05-23 | Outpatient (CLI) | payer BC, SELFPAY ==
--- NOTE | 2022-05-23 07:28 | BI_ITS ---
MAMMOGRAPHY - BILATERAL SCREENING REASON FOR EXAM: Female, 61 years old. Routine annual screening examination. PERTINENT HISTORY: Non-contributory. TECHNIQUE: Digital bilateral breast john (3D mammographic acquisition) in the CC and MLO projections. 2-D mediolateral oblique (MLO) and craniocaudad (CC) views of both breasts were obtained. CAD: Full Field Digital Mammography with Computer Added Detection was performed. COMPARISON: Comparison is made with prior study dated 10/21/2020 and 08/27/2019. FINDINGS: Breast Composition: The breasts are extremely dense, which lowers the sensitivity of mammography. There are no dominant masses or suspicious calcifications. No other significant abnormalities are identified. There has been no significant change since the prior study. BI/SCRN MAMM (CAD)W/JOHN BILAT IMPRESSION: Stable bilateral screening mammogram. Yearly follow-up mammogram recommended. (A) ASSESSMENT CATEGORY: BIRADS Category 1: Negative. A letter regarding these results will be sent to the patient by the facility within 30 days. Approximately 10% of breast cancers are not detected by mammography. A normal mammogram should not delay biopsy of a clinically suspicious abnormality. [id number] Electronically Signed: Anil Junior MD at 8:08 EST ,
== END | disposition home or self-care (01) ==
LOC: OPBI 07:24
PROVIDERS: PCP Family Medicine; Visit Provider Family Medicine
DX: Z12.31 Encounter for screening mammogram for malignant neoplasm of breast (principal)
CPT/HCPCS: 77063; 77067

== ENCOUNTER → 2023-06-29 | Outpatient (CLI) | payer BC, SELFPAY ==
--- NOTE | 2023-06-29 10:12 | BI_ITS ---
MAMMOGRAPHY - BILATERAL SCREENING REASON FOR EXAM: Female, 62 years old. Routine annual screening examination. PERTINENT HISTORY: Non-contributory. TECHNIQUE: Digital bilateral breast john (3D mammographic acquisition) in the CC and MLO projections. 2-D mediolateral oblique (MLO) and craniocaudad (CC) views of both breasts were obtained. CAD: Full Field Digital Mammography with Computer Added Detection was performed. COMPARISON: Comparison is made with prior study of May 23, 2022 and October 21, 2020. FINDINGS: Breast Composition: The breasts are extremely dense, which lowers the sensitivity of mammography. There are no dominant masses or suspicious calcifications. No other significant abnormalities are identified. There has been no significant change since the prior study. BI/SCRN MAMM (CAD)W/JOHN BILAT IMPRESSION: Stable bilateral screening mammogram. Yearly follow-up mammogram recommended. (A) ASSESSMENT CATEGORY: BIRADS Category 1: Negative. A letter regarding these results will be sent to the patient by the facility within 30 days. Approximately 10% of breast cancers are not detected by mammography. A normal mammogram should not delay biopsy of a clinically suspicious abnormality. [id number] Electronically Signed: Anil Junior MD at 10:58 EST ,
--- OUTSIDE RECORDS SUMMARY | 2023-06-29 11:05 | XMS RPT_ITS | CCD ---
Author Name Unknown Address [address] [place] [address] Organization [facility] Care Team Providers Care Pusher Operator Name Role Phone Unavailable Primary Care Provider Saeid Pineda MD Primary Care Provider SAEID STARK Primary Care UnavailSAEID Dominguez Referring SAEID Pate Referring UnavailSAEID Dominguez Primary Care Unavailab SAEID Cotton Attending SAEID Pate Primary Care Unavailab le Allergies Allergy Classification Reported Allergen(s) Allergy Type Date of Onset Reaction(s) Facility (4 sources) Sulfamethoxazole / Trimethoprim; Translations: [SULFAMETHOXAZOLE-TR IMETHOPRIM] Drug Allergy 12-28-[address] [facility] Work Phone: (4 sources) Sulfonamides (Antibiotic); Translations: [SULFA (SULFONAMIDE ANTIBIOTICS)] Propensity to adverse reactions 12-15-[address] [facility] Work Phone: (2 sources) oxybutynin; Translations: [OXYBUTYNIN] Drug Allergy 06-03-20 Other: See Comments [facility] Work Phone: Medications Current Medications Medication Drug Class(es) Dates Sig (Normalized) Sig (Original) hydroCHLOROthiazide 12.5 mg oral capsule (1 source) Thiazide Diuretic Start: 0 End: 2 take 1 capsule by mouth every other day Hydrochlorothiazide 12.5 mg capsule Indications: Hypertension, essential Take 1 capsule by mouth every other day. 45 capsule 3 08/17/2019 04/22/2022 Discontinued Completed/Discontinued Medications Medication Drug Class(es) Dates Sig (Normalized) Sig (Original) lisinopril 10 mg oral tablet (3 sources) Angiotensin Converting Enzyme Inhibitor Start: 11-13-2019 take 1 tablet by mouth twice daily lisinopril (ZESTRIL, PRINIVIL) 10 mg tablet Take 10 mg by mouth twice daily. 0 11/13/2019 Active Problems Active Problems Problem Classification Problem Date Documented Da te Episodic/Chronic Essential hypertension (4 sources) Essential hypertension; Translations: [Essential (primary) hypertension] Onset: 12-02-2017 Chronic Immunizations and screening for infectious disease (2 sources) Vaccination needed; Translations: [Encounter for immunization] Episodic Other diseases of bladder and urethra (4 sources) Spastic neurogenic bladder; Translations: [Other neuromuscular dysfunction of bladder] Chronic Other diseases of bladder and urethra (1 source) Other neuromuscular dysfunction of bladder; Translations: [Spastic neurogenic bladder] Onset: 09-16-2009 Chronic Other gastrointestinal disorders (4 sources) Irritable bowel syndrome; Translations: [Mixed irritable bowel syndrome] Onset: 01-01-2007 Chronic Other screening for suspected conditions (not mental disorders or infectious disease) (1 source) Patient encounter status; Translations: [Encounter for screening mammogram for malignant neoplasm of breast] Episodic Thyroid disorders (1 source) Nontoxic single thyroid nodule; Translations: [Thyroid nodule] Onset: 06-09-2023 Chronic Past or Other Problems Problem Classification Problem Date Documented Da te Episodic/Chronic Other and unspecified benign neoplasm (3 sources) Tubular adenoma of colon; Translations: [Benign neoplasm of colon, unspecified] Onset: 02-04-2019 02-04-2019 Episodic Other skin disorders (4 sources) Seborrheic keratosis; Translations: [Other seborrheic keratosis] Onset: 04-22-2022 Episodic Results Test Name Value Interpretation Reference Range Facil ity Vital Signs Date Time Vital Sign Value Performing Clinician Catarina kumar 04-22-2022 08:42-0400 Diastolic blood pressure 72 mm[Hg] Saeid Stark MD Work Phone: [facility] 04-22-2022 08:42-0400 Systolic blood pressure 126 mm[Hg] Saeid Stark MD Work Phone: [facility] 04-22-2022 07:51-0400 Body weight 53.07 kg Saeid Stark MD Work Phone: [facility] 04-22-2022 07:51-0400 Heart rate 82 /min Saeid Stark MD Work Phone: [facility] 04-22-2022 07:51-0400 SaO2% (BldA) [Mass fraction] 99 % Saeid Stark MD Work Phone: [facility] Encounters Encounter Date Encounter Type Care Provider Facility Start: 06-09-2023 End: 06-09-2023 ambulatory SAEID STARK Facility:[facility] Start: 06-05-2023 Telephone encounter Gus Stark MD Work Phone: [facility] Procedures Date Procedure Procedure Detail Performing Clinician Start: 06-03-2023 Lipid 1996 panel - S karlene or Plasma Saeid Stark MD Work Phone: Start: 05-23-2022 Mammography Gus Stark MD Work Phone: Start: 04-22-2022 [facility] COVI D-19 BIVALENT BOOSTER VACCINE, AGE 12+ YR Saeid Stark MD Work Phone: Start: 10-21-2020 Mammography Gus Stark MD Work Phone: Start: 12-05-2019 Colonoscopy Gus Stark MD Work Phone: Plan of Treatment Date Care Activity Detail Author Start: 04-22-2032 Urine microalbumin profile [facility] Start: 06-03-2028 Lipid panel Lipid Screening [facility] Start: 04-29-2027 LIPID SCREEN LIPID SCREEN [facility] Start: 06-03-2026 Diabetes Screening Diabetes Screenin g [facility] Start: 09-18-2025 HPV TESTING HPV TESTING [facility] Start: 09-18-2025 PAP TESTING PAP TESTING [facility] Start: 09-18-2025 Screening for malign ant neoplasm of cervix [facility] Start: 04-29-2025 DIABETES SCREEN DIABETES SCREEN [facility] Start: 12-04-2024 Colonoscopy COLONOSCOPY [facility] Start: 12-04-2024 COLORECTAL CANCER SCREENING COLORECTAL CANCER SCREENING [facility] Start: 12-04-2024 Screening for malign ant neoplasm of colon [facility] Start: 08-16-2024 LIPID SCREEN LIPID SCREEN [facility] Start: 06-03-2024 Annual PCP Team Psych Sales Specialist enoch Disease Visit Annual PCP Team Chronic Disease Visit [facility] Start: 06-03-2024 RSV Vaccine (1 - 1-d ose 60+ series) RSV Vaccine (1 - 1-dose 60+ series) [facility] Immunizations Immunization Date Immunization Notes Care Provider Fa cility 05-30-2023 influenza, injectabl e, quadrivalent, preservative free Saeid Stark MD Work Phone: [facility] 03-30-2023 COVID-19 vaccine, ag e 12+ yr, season (PFIZER-BIONTECH) Saeid Stark MD Work Phone: [facility] 04-22-2022 COVID-19 booster vaccine, age 12+ yr, bivalent (PFIZER-BIONTECH) Saeid Stark MD Work Phone: [facility] 04-22-2022 tetanus toxoid, reduced diphtheria toxoid, and acellular pertussis vaccine, adsorbed Saeid Stark MD Work Phone: [facility] 09-17-2020 COVID-19 original vaccine, age 12+ yr, monovalent (PFIZER-BIONTECH - PURPLE TOP) Saeid Stark MD Work Phone: [facility] 08-27-2020 COVID-19 original vaccine, age 12+ yr, monovalent (PFIZER-BIONTECH - PURPLE TOP) Saeid Stark MD Work Phone: [facility] 03-23-2020 influenza, injectabl e, quadrivalent, contains preservative Saeid Stark MD Work Phone: [facility] 03-19-2019 influenza virus vaccine, unspecified formulation Saeid Stark MD Work Phone: [facility] 01-01-2007 tetanus toxoid, reduced diphtheria toxoid, and acellular pertussis vaccine, adsorbed Saeid Stark MD Work Phone: [facility] 04-03-1998 influenza virus vaccine, whole virus Saeid Stark MD Work Phone: [facility] Work Phone: 04-18-1997 influenza virus vaccine, whole virus Saeid Stark MD Work Phone: [facility] Work Phone: 06-08-1993 diphtheria and tetan us toxoids, adsorbed for pediatric use Saeid Stark MD Work Phone: [facility] Work Phone: 11-28-1973 diphtheria and tetan us toxoids, adsorbed for pediatric use Saeid Stark MD Work Phone: [facility] Work Phone: 04-18-1966 diphtheria and tetan us toxoids, adsorbed for pediatric use Saeid Stark MD Work Phone: [facility] Work Phone: 01-22-1964 DTP-Haemophilus influenzae type b conjugate vaccine Saeid Stark MD Work Phone: [facility] Work Phone: 01-22-1964 vaccinia (smallpox) vaccine, diluted Saeid Stark MD Work Phone: [facility] Work Phone: 11-11-1959 poliovirus vaccine, inactivated Saeid Stark MD Work Phone: [facility] Work Phone: 04-07-1959 poliovirus vaccine, inactivated Saeid Stark MD Work Phone: [facility] Work Phone: 03-07-1959 poliovirus vaccine, inactivated Saeid Stark MD Work Phone: [facility] Work Phone: 01-27-1959 DTP-Haemophilus influenzae type b conjugate vaccine Saeid Stark MD Work Phone: [facility] Work Phone: 01-27-1959 vaccinia (smallpox) vaccine, diluted Saeid Stark MD Work Phone: [facility] Work Phone: 1960 DTP-Haemophilus influenzae type b conjugate vaccine Saeid Stark MD Work Phone: [facility] Work Phone: 1960 DTP-Haemophilus influenzae type b conjugate vaccine Saedi Stark MD Work Phone: [facility] Work Phone: Payers Date Payer Category Payer Unknown [employer] H[employer] RAMA [id number] 2022-Present [phone] [address] [place] [address] HMO [id number] 2022 Unknown [id number] 2019 Private Health Insurance MARY DELGADO OAP [id number] 2019-Present [phone] [address] [place] [address] Open Access [id number] Social History Date Type Detail Facility Start: 04-22-2022 Tobacco smoking stat us OKIS Never smoked tobacco [facility] Start: 04-22-2022 Tobacco use and exposure Smokeless t obacco non-user [facility] Start: 04-22-2022 End: 06-03-2023 Alcohol intake Current drinker of alcohol (finding) [facility] Start: 04-22-2022 End: 05-31-2023 Alcohol intake [facility] Start: 04-18-2022 History SDOH Alcohol Frequency 3 [facility] Start: 04-18-2022 History SDOH Alcohol Std Drinks 1 [facility] Start: 04-18-2022 History SDOH Physica l Activity DPW 4 [facility] Start: 04-18-2022 History SDOH Stress 2 [facility] Start: 04-18-2022 History SDOH Financial 5 [facility] Start: 08-12-2019 Education 12 [facility] Start: 01-01-2007 Alcohol Comment occassionally [facility] Start: 1960 Sex Assigned At Female C [facility] Start: 04-12-2022 End: 04-22-2022 Exposure to SARS-CoV-2 (event) Not sure [facility] Start: 05-31-2023 End: 06-03-2023 [facility] [employer] [facility] Has the [employer], or [employer] threatened to shut off services in your home in past 12Mo No [facility] How often do you att end restoration or anabaptist services? Patient refused [facility] Are you now , , , , never or living with a partner? [facility] How often to you hav e a drink containing alcohol? 2-3 time sa week [facility] How many standard dr inks containing alcohol do you have on a typical day? 1 or 2 [facility] How often do you hav e 6 or more drinks on 1 occasion? Never [facility] Do you feel stress - tense, restless, nervous, or anxious, or unable to sleep at night because your mind is troubled all the time - these days [OSQ] Not at all [facility] (I/We) worried wheth er (my/our) food would run out before (I/we) got money to buy more. Never true [facility] Start: 08-24-2020 Gender identity Identifies as female gender (finding) [facility] Progress note 06-09-2023 Note Date & Type Note Facility 06-09-2023 Note HNO ID: [id number] Author: Alyce Lindo RDMS Service: ? Author Type: Service Assistant Type: Progress Notes Filed: 06/09/2023 1:18 PM Note Text: Radiology Service Progress Note PATIENT NAME: Allen Ulrich DATE OF SERVICE: June 09, 2023 TIME: 1:18 PM PATIENT IDENTITY VERIFICATION COMPLETED USING TWO (2) IDENTIFIERS: Name and Date of confirmed by patient verbally. FALL SCREENING: Has the patient had 2 falls in the last year or 1 fall with injury or currently using an Ambulatory Assistive Device (Walker, Cane, Wheelchair, Crutches, etc.)? No PATIENT GENDER DATA: Female. status: : No status: NO. PATIENT RELEVANT IMPLANT DATA REVIEWED: Not Applicable RADIOLOGY DEPARTMENT: Ultrasound PERIPHERAL IV DATA: Not applicable SIGNED BY: Alyce Lindo RDMS RVT June 09, 2023 1:18 PM [facility] Rivas Note 06-05-2023 Telephone Encounter - Geena Ramírez LPN - 06/05/2023 1:31 PM ESTTelephone Encounter - Saeid Stark MD - 06/05/2023 1:23 PM EST Note Date & Type Note Facility 06-05-2023 Miscellaneous Notes Formattin g of this note might be different from the original. Patient updated. Rx sent as requested. Phoned patient and reviewed results and recommendations with her. Patient voiced understanding and reports that Dr Stark ordered her myrbetriq but it will cost over $400. She asked if Dr Stark could order generic Detrol LA as she had used it in the past and knows its covered by her insurance. Advised her will forward it to her PCP for review. ----- Message from Saeid Stark MD sent at 06/05/2023 11:58 AM EST ----- Normal labs aside from high cholesterol. Up compared to last check 1 year ago, but again I suspect this is high because her good cholesterol is over 100. Her LDL is borderline normal. Recommend low cholesterol diet and exercise as tolerated without change to regimen. F/u with thyroid US as ordered for nodule and will call with results and recommendations once it is back. documented in this encounter [facility] Progress note 06-03-2023 Note Date & Type Note Facility 06-03-2023 Note HNO ID: [id number] Author: Saeid Stark MD Service: ? Author Type: Physician Type: Progress Notes Filed: 06/03/2023 9:20 AM Note Text: Chief Complaint Patient presents with: Physical HPI Allen Ulrich is a 62 year old female who presents here today for Above Complaints. Patient has been in good health without hospitalizations or ER visits. HTN: Ms. Ulrich indicates that she is feeling well and denies any symptoms referable to elevated blood pressure. Specifically denies headache, chest pain, palpitations, dyspnea, and peripheral edema. Patient denies any side effects of her medication(s) and is compliant with their regimen. She does check BP's away from this office with average BP's in the 110's/80's range. Allen likes to exercise by walking. She watches her diet for sodium, low fat and low cholesterol most of the time. Last 3 Encounter BP Readings: Date: BP: 06/03/2023 128/82 04/22/2022 126/72[recheck[ 04/19/2021 110/66 Notes that she feels cold frequently which started about 6 months ago without weight gain, fatigue, hair/skin changes, constipation. Stopped oxybutynin about a year ago due to side effects of dry mouth and epistaxis. 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 Not seeing specialist for her spastic bladder. Still complaining of urgency in the evening without incontinence. Sets watch timer to use restroom every 90 minutes. Would like new rx. Due for screening mammogram. HPV negative in 2020. Pap smear showed limited cellularity and was unsatisfactory for evaluation. Colonoscopy in 2019 normal with recommendation to repeat in 5 years. PHQ-2 / Depression screen He in the past two weeks denies having felt down, depressed, hopeless or with little interest or pleasure in doing things. Past medical history, appointments, medications, allergies reviewed. Previous Medical History PAST MEDICAL HISTORY Diagnosis Date Abdominal pain, unspecified site Actinic keratosis Dr. Quiñones Acute gastritis without mention of hemorrhage Hypertension Irritable bowel syndrome 2001 Measles with unspecified complication Seborrheic keratosis Spastic neurogenic bladder Tubular adenoma of colon Previous Surgical History PAST SURGICAL HISTORY Procedure Laterality Date CHOLECYSTECTOMY 1988 Cholecystectomy COLONOSCOPY FLX DX W/COLLJ SPEC WHEN PFRMD 05/15/2002 Colonoscopy-repeat in COLONOSCOPY FLX DX W/COLLJ SPEC WHEN PFRMD 11/20/2015 Colonoscopy COLONOSCOPY FLX DX W/COLLJ SPEC WHEN PFRMD 12/05/2019 Colonoscopy-repeat in 5 years ESOPHAGOGASTRODUODENOSCOPY TRANSORAL DIAGNOSTIC 04/13/2001 EGD EXCISION GANGLION WRIST DORSAL/VOLAR PRIMARY 1986 RIGHT Family History FAMILY HISTORY Problem Relation Age of Onset Cancer Mother OVARIAN Coronary Artery Disease Father Hypertension Father No Known Problems Sister No Known Problems Sister No Known Problems Brother No Known Problems Brother No Known Problems Daughter No Known Problems Daughter Patient Allergies ALLERGIES Allergen Reactions Bactrim Ds [Sulfame* Rash Sulfa (Sulfonamide * Rash Current Medications Current Outpatient Medications on File Prior to Visit Medication Sig lisinopril (ZESTRIL, PRINIVIL) 10 mg tablet Take 10 mg by mouth twice daily. multivitamin tablet Take 1 tablet by mouth once daily. oxybutynin ER (DITROPAN XL) 10 mg 24 hr tablet Take 1 tablet by mouth once daily. No current facility-administered medications on file prior to visit. Social History Social History Tobacco Use Smoking status: Never Smokeless tobacco: Never Vaping Use Vaping Use: Never used Substance Use Topics Alcohol use: Yes Alcohol/week: 1.0 standard drink of alcohol Types: 1 Standard drinks or equivalent per week Comment: occassionally Drug use: No Review of Symptoms REVIEW OF SYSTEMS GENERAL: No weight loss, malaise or fevers HEENT: Negative for frequent or significant headaches, No changes in hearing or vision, no nose bleeds or other nasal problems NECK: Negative for lumps, goiter, pain and significant neck swelling RESPIRATORY: Negative for cough, hemoptysis, wheezing, COPD, dyspnea or shortness of breath CARDIOVASCULAR: Negative for chest pain, leg swelling, hypertension, CHF or palpitations GI: No nausea, vomiting, or diarrhea : See HPI MERCHANDISE DISPLAYER: Negative for abnormal vaginal bleeding, abnormal vaginal discharge MUSCULOSKELETAL: Negative for joint pain or swelling, back pain or muscle pain SKIN: Negative for lesions, rash, and itching PSYCH: Negative for sleep disturbance, mood disorder and recent psychosocial stressors HEMATOLOGY/LYMPHOLOGY: Negative for prolonged bleeding, bruising easily or swollen nodes ENDOCRINE: See HPI NEURO: No history of headaches, syncope, paralysis, seizures or tremors EXAM: BP 128/82 Pulse 70 Temp 36 ?C (96.8 ?F) (Right Tympanic) Resp 16 Ht 160 cm (5' 3 ) Wt 52.6 kg (116 lb) SpO2 99% BMI 20. (more content not included)... [facility] History of Present illness Narrative 05-23-2022 Saeid Stark MD - 05/23/2022 2:25 PM ESTCacyril Pulido LPN - 05/23/2022 1:05 PM EST Note Date & Type Note Facility 05-23-2022 History of Presen t illness Narrative Stable screening mammogram. Negative for cancer/malignancy. Repeat in 1 year. Please see Mammogram ordered by PCP: Scan on 05/23/2022 8:31 AM by External Provider: Mammography Noa Pulido LPN documented in this encounter [facility] History of Present illness Narrative 04-22-2022 Saeid Stark MD - 04/22/2022 7:57 AM EDT Note Date & Type Note Facility 04-22-2022 History of Presen t illness Narrative Chief Complaint Patient presents with: Physical HPI Allen Ulrich is a 61 year old female who presents here today for transfer of care from Dr. Black with last OV 09/2020. Patient has been in good health without recent hospitalizations or ER visits. Patient states that she has been following up with Dr. Quiñones for history of AKs and fungal infection on her back. Last OV in October or November. Will obtain records. Following up with Dr. Mcgarry for history of dizziness while riding her bike. They have been managing her BP recently. HTN: Ms. Ulrich indicates that she has had headaches recently. Denies chest pain, palpitations, dyspnea, and peripheral edema. Patient denies any side effects of her medication(s) and is compliant with their regimen. She does check BP's away from this office with average BP's in the 120-165/70-80 range. Allen works out regularly 3 times per week with biking and walking. She watches her diet for sodium, low fat and low cholesterol most of the time. Last 3 Encounter BP Readings: Date: BP: 04/22/2022 146/82 04/19/2021 110/66 09/18/2020 140/86 Patient states that her rx for Ditropan XL ran out which she was taking for neurogenic. Previously well controlled on 10 mg dosage without side effects. Admits to sudden urge to urinate and incontinence. Denies dysuria, hematuria, fever/chills, nausea/vomiting. PHQ-2 / Depression screen He in the past two weeks denies having felt down, depressed, hopeless or with little interest or pleasure in doing things. Got her flu shot at work already. Has had 4 COVID shots with last in October. Past medical history, appointments, medications, allergies reviewed. Previous Medical History PAST MEDICAL HISTORY Diagnosis Date Abdominal pain, unspecified site Acute gastritis without mention of hemorrhage Hypertension Irritable bowel syndrome 2001 Measles with unspecified complication Spastic neurogenic bladder Previous Surgical History PAST SURGICAL HISTORY Procedure Laterality Date CHOLECYSTECTOMY 1988 Cholecystectomy COLONOSCOPY FLX DX W/COLLJ SPEC WHEN PFRMD 05/15/02 Colonoscopy-repeat in COLONOSCOPY FLX DX W/COLLJ SPEC WHEN PFRMD 11/20/15 Colonoscopy COLONOSCOPY FLX DX W/COLLJ SPEC WHEN PFRMD 12/05/2019 Colonoscopy ESOPHAGOGASTRODUODENOSCOPY TRANSORAL DIAGNOSTIC 04/13/01 EGD EXCISION GANGLION WRIST DORSAL/VOLAR PRIMARY 1986 RIGHT Family History FAMILY HISTORY Problem Relation Age of Onset Cancer Mother OVARIAN Coronary Artery Disease Father Hypertension Father None Sister None Sister None Brother None Brother Patient Allergies ALLERGIES Allergen Reactions Bactrim Ds [Sulfame* Rash Sulfa (Sulfonamide * Rash Current Medications Current Outpatient Medications on File Prior to Visit Medication Sig lisinopril (ZESTRIL, PRINIVIL) 10 mg tablet Take 10 mg by mouth twice daily. multivitamin tablet Take 1 tablet by mouth once daily. oxybutynin ER (DITROPAN XL) 10 mg 24 hr tablet Take 1 tablet by mouth once daily. Hydrochlorothiazide 12.5 mg capsule Take 1 capsule by mouth every other day. (Patient not taking: Reported on 11/22/2019 ) No current facility-administered medications on file prior to visit. Social History Social History Tobacco Use Smoking status: Never Smokeless tobacco: Never Vaping Use Vaping Use: Never used Substance Use Topics Alcohol use: Yes Comment: occassionally Drug use: No Review of Symptoms REVIEW OF SYSTEMS GENERAL: No weight loss, malaise or fevers HEENT: Negative for frequent or significant headaches, No changes in hearing or vision, no nose bleeds or other nasal problems NECK: Negative for lumps, goiter, pain and significant neck swelling RESPIRATORY: Negative for cough, hemoptysis, wheezing, COPD, dyspnea or shortness of breath CARDIOVASCULAR: Negative for chest pain, leg swelling, hypertension, CHF or palpitations GI: No nausea, vomiting, or diarrhea : See HPI MERCHANDISE DISPLAYER: Negative for abnormal vaginal bleeding, abnormal vaginal discharge MUSCULOSKELETAL: Negative for joint pain or swelling, back pain or muscle pain SKIN: See HPI EXAM: BP 126/72 Pulse 82 Wt 53.1 kg (117 lb) SpO2 99% BMI 21.40 kg/m General Appearance: Well appearing, alert, in no acute distress, well-hydrated, well nourished.. Skin: Skin color, texture, turgor normal, no suspicious rashes or lesions. Head: Normocephalic, no masses, lesions, tenderness or abnormalities. Eyes: Anicteric sclera. Pupils are equally round and reactive to light. Extraocular movements are intact. . Ears: External ears normal, canals clear. Nose/Sinuses: Nares normal, septum midline, mucosa normal, no drainage or sinus tenderness. Oropharynx: Lips, mucosa, and tongue normal, teeth and gums normal, oropharynx normal. Neck: Supple, no adenopathy; thyroid symmetric, normal size, no bruits. Lungs: Lungs clear to auscultation. No wheezing, rhonchi, rales.. Heart: RRR without murmur, gallop, or rubs. No ectopy. Abdomen: Normal abdominal exam, Abdomen soft, non-tender. Bowel sounds normal. No masses, organomegaly. Extremities: No deformities, edema, skin discoloration, clubbing or cyanosis. Good capillary refill. . Health Maintenance List HEPATITIS C SCREENING Never done HIV SCREENING Never done BP CONTROLLED (<130/80) Never done SHINGRIX VACCINE(1 of 2) Never done DTAP,TDAP,TD(8 - Td or Tdap) due on 01/01/2017 DEPRESSION ASSESSMENT Never done COVID-19 VACCINE(4 - Booster for Pfizer series) due on 07/16/2021 ANNUAL PCP TEAM CHRONIC DISEASE VISIT due on 09/18/2021 MAMMOGRAM due on 10/21/2021 INFLUENZA(1) due on 02/17/2022 DIABETES SCREEN due on 09/06/2023 LIPID SCREEN due on 08/16/2024 COLORECTAL CANCER SCREENING due on 12/04/2024 PAP TESTING due on 09/18/2025 HPV TESTING due on 09/18/2025 Data reviewed Component Latest Ref Rng & Units 08/17/2019 09/05/2020 Protein, Total 6.3 - 8.0 g/dL 7.5 Albumin 3.9 - 4.9 g/dL 4.8 Calcium 8.5 - 10.2 mg/dL 10.1 9.6 Bilirubin, Total 0.2 - 1.3 mg/dL 0.5 Alkaline Phosphatase 34 - 123 U/L 69 AST 13 - 35 U/L 33 Glucose 74 - 99 mg/dL 96 88 BUN 7 - 21 mg/dL 12 14 Creatinine 0.58 - 0.96 mg/dL 0.93 0.88 Sodium 136 - 144 mmol/L 137 138 Potassium 3.7 - 5.1 mmol/L 4.4 4.3 Chloride 97 - 105 mmol/L 98 101 CO2 22 - 30 mmol/L 27 27 Anion Gap 9 - 18 mmol/L 12 10 ALT 7 - 38 U/L 24 eGFR- >60 >60 eGFR-All Other Races . >60 >60 Cholesterol, Total <200 mg/dL 210 (H) Triglyceride <150 mg/dL 55 HDL Cholesterol >39 mg/dL 108 LDL Cholesterol <100 mg/dL 91 Non HDL Cholesterol <130 mg/dL 102 Fasting Time hrs 11 VLDL Cholesterol <30 mg/dL 11 TC:HDL Ratio <5.10 1.94 LDL:HDL Ratio <2.54 0.84 ASSESSMENT/PLAN: 1. Annual physical exam - ICD9: V70.0, ICD10: Z00.00 (primary diagnosis) - Counseled on healthy diet and regular exercise - Calcium intake with supplements or by diet of 1000 mg/day for under 50, 4773-4569 mg/day for 50+ - Counseled patient on limiting alcohol intake to 1 drink per day - Depression screening tool completed and reviewed with patient. Based on score and interview, patient is not at risk for depression and recommended no further intervention at this time. - Follow up for annual exam in one year - CBC - COMP METABOLIC PANEL - LIPID PANEL BASIC - DEPRESSION SCREENING/ASSESSMENT 2. Hypertension, essential - ICD9: 401.9, ICD10: I10 - good control - Continue current medication(s) - Encouraged dietary sodium restriction/DASH diet - Recommended regular aerobic exercise. - Reviewed risks of HTN and principles of treatment - Goal of BP <140/90 3. Spastic neurogenic bladder - ICD9: 596.54, ICD10: N31.8 Restart oxybutynin. Call if urgency and incontinence not improved. 4. Irritable bowel syndrome with both constipation and diarrhea - ICD9: 564.1, ICD10: K58.2 States symptoms have been resolved for more than a year. Will monitor. 5. Screening mammogram, encounter for - ICD9: V76.12, ICD10: Z12.31 - Set up for mammogram, yearly mammogram recommended - [facility] SCREENING 6. Need for vaccination - ICD9: V05.9, ICD10: Z23 - TDAP VACCINE AGE 7+ IM 7. Need for COVID-19 vaccine - ICD9: V04.89, ICD10: Z23 - PFIZER-BIONTRossolini COVID-19 BIVALENT BOOSTER VACCINE, AGE 12+ YR Saeid Stark MD documented in this encounter [facility] History of Past illness Narrative 02-04-2019 Note Date & Type Note Facility documented as of this encounter (statuses as of 04/22/2022) [facility] History of Past illness Narrative 02-04-2019 Note Date & Type Note Facility documented as of this encounter (statuses as of 05/23/2022) [facility] History of Past illness Narrative 02-04-2019 Note Date & Type Note Facility documented as of this encounter (statuses as of 06/06/2023) [facility] Evaluation note Note Date & Type Note Facility documented in this encounter [facility] Reason for referral (narrative) Diagnostic Procedure Only (Routine) - Pending Review Note Date & Type Note Facility Referral ID Status Reason Start Date Expiration Date Visits Requested Visits Authorized [id number] Pending Review Auto-Generat ed Referral 04/22/2022 05/22/2023 1 1 [facility] Summary Purpose Family History No Family History Records Found Advance Directives No Advanced Directives Records Found Additional Source Comments Source Comments (unrecognize d section and content) In the event this informatio n is protected by the Federal Confidentiality of Alcohol and Drug Abuse Patient Records regulations: The Federal rules restrict any use of the information to criminally investigate or prosecute any alcohol or drug abuse patient.[facility] the event this information is protected by the Federal Confidentiality of Alcohol and Drug Abuse Patient Records regulations: The Federal rules restrict any use of the information to criminally investigate or prosecute any alcohol or drug abuse patient.[facility] the event this information is protected by the Federal Confidentiality of Alcohol and Drug Abuse Patient Records regulations: The Federal rules restrict any use of the information to criminally investigate or prosecute any alcohol or drug abuse patient.[facility] Reason for Visit (unrecogniz ed section and content) Reason Comments Outside Mammogram Reason Comments Results Care Teams (unrecognized sec tion and content) 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 This clinical summary was aggregated from multiple sources. Caution should be exercised in using it in the provision of clinical care. This summary normalizes information from multiple sources, and as a consequence, information in this document may materially change the coding, format and clinical context of patient data. In addition, data may be omitted in some cases. CLINICAL DECISIONS SHOULD BE BASED ON THE PRIMARY CLINICAL RECORDS. [employer] [facility]. provides no warranty or guarantee of the accuracy or completeness of information in this document.
== END | disposition home or self-care (01) ==
LOC: OPBI 10:11
PROVIDERS: PCP Family Medicine; Referring Provider Family Medicine; Visit Provider Family Medicine
DX: Z12.31 Encounter for screening mammogram for malignant neoplasm of breast (principal)
CPT/HCPCS: 77063; 77067

== ENCOUNTER → 2025-04-09 | Outpatient (CLI) | payer MEDICARE, BC, SELFPAY ==
--- NOTE | 2025-04-09 08:55 | ECHOD_ITS ---
Reason For Study Reason For Study: HTN Procedure This was a 2D Doppler, Color Flow transthoracic echocardiogram. Exam performed in department. Left Ventricle Normal LV size. Left ventricular systolic function is normal. The left ventricular ejection fraction is 65 %. No regional wall motion abnormalities noted. Right Ventricle Normal RV size. Normal systolic function. Atria Normal left atrium. Normal right atrium. Mitral Valve Normal mitral valve. Tricuspid Valve Normal tricuspid valve. Mild (1+) tricuspid valve insufficiency. Aortic Valve Normal aortic valve. Trisinus/trileaflet aortic valve. Pulmonic Valve Normal pulmonic valve. Great Vessels Normal aortic root. The pulmonary artery is normal size. Inferior vena cava collapse with sniff. Pericardium/Pleural No pericardial effusion. MMode/2D Measurements & Calculations LVIDd: 3.8 cm IVSd: 0.75 cm Ao root diam: 3.2 cm LVIDs: 2.2 cm LVPWd: 0.74 cm RVDd: 3.4 cm FS: 42.8 % LAV(MOD-bp): 24.0 ml LVAd ap4: 23.1 cm2 SV(MOD-sp4): 39.0 ml LAV(MOD-bp) Indexed: 15.9 ml/m2 LVLd ap4: 7.3 cm SI(MOD-sp4): 25.8 ml/m2 LAV(MOD-sp2): 16.3 ml EDV(MOD-sp4): 60.6 ml LAV(MOD-sp4): 26.2 ml EDV(sp4-el): 62.4 ml LVAs ap4: 12.2 cm2 LVLs ap4: 5.9 cm ESV(MOD-sp4): 21.6 ml ESV(sp4-el): 21.1 ml EF(MOD-sp4): 64.4 % EF(sp4-el): 66.2 % SV(sp4-el): 41.3 ml LA A4 area: 12.3 cm2 LA dimension(2D): 2.6 cm RA A4 area: 12.5 cm2 TAPSE: 2.1 cm Time Measurements MV dec time: 0.22 sec Doppler Measurements & Calculations MV E max carlos: 64.6 cm/sec Lat Peak E' Carlos: 13.1 cm/sec Med Peak E' Carlos: 10.9 cm/sec MV A max carlos: 59.6 cm/sec E/E' lat: 4.9 E/E' med: 5.9 MV E/A: 1.1 MV V2 max: 73.1 cm/sec MV P1/2t max carlos: 73.8 cm/sec Ao V2 max: 104.6 cm/sec MV max P.1 mmHg MV P1/2t: 73.6 msec Ao max P.4 mmHg MV V2 mean: 42.8 cm/sec Ao V2 mean: 72.4 cm/sec MV mean P.86 mmHg MV dec slope: 293.6 cm/sec2 Ao mean P.4 mmHg MV V2 VTI: 21.4 cm MVA(P1/2t): 3.0 cm2 Ao V2 VTI: 25.2 cm AV (velocity ratio): 0.89 LV V1 max: 90.9 cm/sec PA V2 max: 68.4 cm/sec TR max carlos: 196.4 cm/sec LV V1 max P.3 mmHg TR max P.4 mmHg LV V1 mean P.7 mmHg LV V1 mean: 61.1 cm/sec LV V1 VTI: 22.4 cm ECHO/Echo Complete Interpretation Summary Normal LV size. Left ventricular systolic function is normal. The left ventricular ejection fraction is 65 %. Mild (1+) tricuspid valve insufficiency. Structurally normal valves. Ordering Physician: Cortes Mcgarry Referring Physician: Cortes Mcgarry Performed By: Sagar Shrestha RCS
== END | disposition home or self-care (01) ==
LOC: CVS 08:54
PROVIDERS: PCP Family Medicine; Referring Provider Internal Medicine Cardiovascular Disease; Visit Provider Internal Medicine Cardiovascular Disease
DX: I07.1 Rheumatic tricuspid insufficiency (principal); I10 Essential (primary) hypertension; I51.89 Other ill-defined heart diseases
CPT/HCPCS: 93306